=== PATIENT | female | born 2000 | race Caucasian/White ===

== ENCOUNTER 2024-02-13 05:18 | Emergency (ER) | payer SELFPAY ==
[~2024-02-13] VITALS: Ht 162.6 cm; Wt 65.0 kg
[2024-02-13 05:21] VITALS: O2SAT 99
[2024-02-13 05:57] VITALS: TEMP 37.11408
[2024-02-13 06:02] LABS: BASOPHILS % 0.2 % (0.0-2.0); EOSINOPHILS % 0.8 % (0.0-5.0); HEMATOCRIT. 36.6 % (36.0-48.0); HEMOGLOBIN. 12.5 g/dL (12.0-16.0); LYMPHOCYTES % 18.5 % (20.0-50.0); MEAN CORPUSCULAR HEMOGLOBIN 30.9 pg (28.0-32.0); MEAN CORPUSCULAR HGB CONC 34.2 g/dL (31.0-37.0); MEAN CORPUSCULAR VOLUME 90.3 fL (81.0-99.0); MEAN PLATELET VOLUME 7.9 fl (7.4-10.4); MONOCYTES % 3.6 % (2.0-8.0); NEUTROPHILS % 76.9 % (40.0-76.0); PLATELET 239 x1000/uL (130-400); RED BLOOD CELL COUNT 4.05 mill/uL (4.2-5.4); RED CELL DISTRIBUTION WIDTH 13.9 % (11.6-14.6); WHITE BLOOD COUNT 10.4 x1000/uL (4.5-11.0)
[2024-02-13] MEDS: MORPHINE SULFATE 4 MG/ML INJ (FOR IV/IM USE) IV STA (06:05)
[2024-02-13] MEDS: SODIUM CHLORIDE 0.9% 1,000 ML IV ONE (06:05)
[2024-02-13] MEDS: ONDANSETRON HCL 4MG/2ML INJ IV STA (06:05)
[2024-02-13] MEDS: KETOROLAC 30MG/ML VIAL IV STA (06:22)
[2024-02-13 06:26] LABS: INR 1.1; PROTHROMBIN TIME 11.8 sec (9.6-11.0)
[2024-02-13 06:27] LABS: CHLORIDE 109 mEq/L (98-107); SODIUM 142 mEq/L (136-145)
[2024-02-13 06:28] LABS: CALCIUM 9.4 mg/dL (8.7-10.4); CARBON DIOXIDE 23 mEq/L (21-32)
[2024-02-13 07:00] LABS: HCG SCREEN NEGATIVE
[2024-02-13 07:15] LABS: CREATININE 0.8 mg/dL (0.6-1.0); GLUCOSE 119 mg/dL (70-105); UREA NITROGEN BLOOD 15 mg/dL (9-23)
[2024-02-13 07:17] LABS: ALANINE AMINOTRANSFERASE 17 IU/L (10-49); ALBUMIN 4.7 g/dL (3.2-4.8); ASPARTATE AMINOTRANSFERASE 20 IU/L (<34); BILIRUBIN DIRECT 0.2 mg/dL (<=3.0); BILIRUBIN TOTAL 0.6 mg/dL (0.1-1.0); PROTEIN TOTAL 7.8 g/dL (6.0-8.3)
[2024-02-13] MEDS ORDERED: ONDA-239 PO (09:50)
[2024-02-13] MEDS ORDERED: HYDR-4001 MT (09:50)
[2024-02-13 10:40] VITALS: BP 83/53; PULSE 68; RESP 19; O2SAT 100
== END 2024-02-13 11:00 | disposition home or self-care (01) ==
LOC: ER 05:18
DX: N83.202 Unspecified ovarian cyst, left side (principal)
CPT/HCPCS: 80076; 80048; 84703; 83690; 85025; 85610; 36415; 76830; 76856; 96361; 96374; 96375; 99285; J1885; J2405; J2270; J7030; Z7610

== ENCOUNTER 2024-09-28 02:43 | Emergency (ER) | payer MEDICAID ==
[~2024-09-28] VITALS: Ht 165.1 cm; Wt 52.0 kg
[~2024-09-28 02:43] MED LIST: HYDR-4001 MT; ONDA-239 PO
[2024-09-28 02:46] VITALS: TEMP 36.6; O2SAT 99
[2024-09-28 03:21] VITALS: BP 95/58; PULSE 67; RESP 12; O2SAT 99
== END 2024-09-28 03:24 | disposition home or self-care (01) ==
LOC: ER 02:43
DX: L50.9 Urticaria, unspecified (principal); T50.905A Adverse effect of unspecified drugs, medicaments and biological substances, initial encounter; Y92.89 Other specified places as the place of occurrence of the external cause
CPT/HCPCS: 99282

== ENCOUNTER 2025-04-03 11:19 | Emergency (ER) | payer MEDICAID ==
[~2025-04-03] VITALS: Ht 167.6 cm; Wt 59.0 kg
[2025-04-03 11:21] VITALS: O2SAT 100
[2025-04-03 11:37] VITALS: BP 102/63; PULSE 68; RESP 18; TEMP 36.6; O2SAT 99
[2025-04-03] MEDS ORDERED: ONDANSETRON HCL 4MG/2ML INJ IV ONE (11:45)
[2025-04-03] MEDS ORDERED: KETOROLAC 15MG/ML VIAL IV ONE (11:45)
[2025-04-03 12:17] LABS: BASOPHILS % 0.6 % (0.0-2.0); EOSINOPHILS % 0.9 % (0.0-5.0); HEMATOCRIT. 35.2 % (36.0-48.0); HEMOGLOBIN. 11.8 g/dL (12.0-16.0); LYMPHOCYTES % 20.7 % (20.0-50.0); MEAN PLATELET VOLUME 8.4 fl (7.4-10.4); MONOCYTES % 2.9 % (2.0-8.0); NEUTROPHILS % 74.9 % (40.0-76.0); PLATELET 198 x1000/uL (130-400); RED BLOOD CELL COUNT 3.91 mill/uL (4.2-5.4); RED CELL DISTRIBUTION WIDTH 13.9 % (11.6-14.6)
[2025-04-03 12:31] LABS: CREATININE 0.7 mg/dL (0.6-1.0)
[2025-04-03 12:32] LABS: UREA NITROGEN BLOOD 14 mg/dL (9-23)
[2025-04-03 13:15] LABS: HCG SCREEN NEGATIVE
[2025-04-03] MEDS ORDERED: IBUP-2030 PO (13:39)
== END 2025-04-03 14:42 | disposition home or self-care (01) ==
LOC: ER 11:30 → CANBEDREQ 13:28 → ER 14:42
DX: R10.84 Generalized abdominal pain (principal); Z79.1 Long term (current) use of non-steroidal anti-inflammatories (NSAID)
CPT/HCPCS: 36415; 80048; 84703; 85025; 86850; 86900; 99283; A4606